=== PATIENT | female | born 2000 | race Caucasian/White ===

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

== ENCOUNTER 2020-11-08 06:32 | Emergency (ER) | payer SELFPAY ==
[~2020-11-08] VITALS: Ht 162.6 cm; Wt 89.8 kg
[2020-11-08 06:44] VITALS: Ht 162.6 cm; Wt 89.8 kg
[2020-11-08] MEDS ORDERED: MOT600 PO (07:00)
[2020-11-08 07:12] VITALS: BP 146/88
== END 2020-11-08 07:12 | disposition home or self-care (01) ==
LOC: ED 06:32
DX: M26.603 Bilateral temporomandibular joint disorder, unspecified (principal)